=== PATIENT | female | born 1950 | race Caucasian/White ===

== ENCOUNTER 2016-09-02 23:54 | Emergency (ER) | payer OTHER ==
[~2016-09-02] VITALS: Ht 165.1 cm; Wt 104.2 kg
[~2016-09-02 23:54] MED LIST: ASPI-496 PO; CALC1CAP8 PO; CALC625T68 PO; CHOL5000 PO; FISH1CAP PO; LINA290C PO; LUTE1CAP PO; OMEP-110 PO; OXYC-223 PO; TRAM100T2 PO; VITA400T6 PO; lidocaine patch TD; statin PO
[2016-09-02 23:55] VITALS: BP 149/88
[2016-09-03] MEDS ORDERED: ASPIRIN 81 MG TABLET CHEW ONE ×2 (00:06→01:08)
[2016-09-03] MEDS ORDERED: SODIUM CHLORIDE FLUSH 10ML SYR IVF ONE (00:30)
[2016-09-03] MEDS ORDERED: ASPIRIN 81 MG TABLET CHEW PO ONE (00:30)
[2016-09-03 00:34] LABS: BLOOD UREA NITROGEN 18 mg/dL (7-18); IS PT STATUS REG ER OR PRE ER? YES
[2016-09-03] MEDS ORDERED: KETOROLAC 30 MG/1 ML ONE (01:08)
[2016-09-03] MEDS ORDERED: MAALOX/HYOSCYAMINE/LIDOCAINE 45 ML BOTTLE ONE (01:08)
== END 2016-09-03 10:09 | disposition home or self-care (01) ==
LOC: ED 09-03 02:35
DX: R07.89 Other chest pain (principal); I10 Essential (primary) hypertension; E78.5 Hyperlipidemia, unspecified
CPT/HCPCS: 36415; 71020; 80048; 82040; 84484; 85025; 93005; 99285

== ENCOUNTER → 2018-01-06 | Outpatient (CLI) | payer OTHER ==
[~2018-01-06] MED LIST changes: +ATOR20TA9 PO; -OXYC-223 PO; +OXYC-306 PO; -TRAM100T2 PO; +TRAM100T33 PO
== END | disposition home or self-care (01) ==
LOC: STAR 09:39
PROVIDERS: ATTEND Surgery
DX: Z02.9 Encounter for administrative examinations, unspecified (principal)

== ENCOUNTER → 2018-01-09 | Outpatient (CLI) | payer OTHER | END | disposition home or self-care (01) | LOC: CFH 07:25 | PROVIDERS: ATTEND Internal Medicine Cardiovascular Disease | DX: R07.9 Chest pain, unspecified (principal) | CPT/HCPCS: 78452; 93017; A9502 ==

== ENCOUNTER 2018-01-14 05:16 | Day surgery (SDC) | payer OTHER ==
[~2018-01-14] VITALS: Ht 165.1 cm; Wt 102.4 kg
[2018-01-14] MEDS ORDERED: SCOPOLAMINE PATCH, 1.5MG PATCH.TD72 TD ONE (06:30)
[2018-01-14] MEDS ORDERED: LACTATED RINGERS 1,000 ML IV SCH (06:44)
[2018-01-14 06:49] VITALS: BP 129/86
[2018-01-14] MEDS ORDERED: BUPIVACAINE/PF 0.5% ONE (06:59)
[2018-01-14] MEDS ORDERED: GABAPENTIN 300 MG CAPSULE PO ONE (07:30)
[2018-01-14] MEDS ORDERED: ACETAMINOPHEN 500 MG TABLET PO ONE (07:30)
[2018-01-14] MEDS ORDERED: BUPIVACAINE 0.25% ONE (07:34)
[2018-01-14] MEDS ORDERED: BUPIVACAINE/PF 0.25% INFIL ONE (07:48)
[2018-01-14] MEDS ORDERED: FENTANYL PF 100 MCG/2ML ONE ×2 (07:58→10:14)
[2018-01-14] MEDS ORDERED: OXYcodone 5 MG/5 ML ORAL.SOL UDC PO PRN (08:00)
[2018-01-14] MEDS ORDERED: hydrALAzine 20 MG/ML, 1ML IV PRN (08:00)
[2018-01-14] MEDS ORDERED: HYDROmorphone 1 MG/ML, 1ML IV PRN (08:00)
[2018-01-14] MEDS ORDERED: PROCHLORPERAZINE 5 MG/ML, 2ML IV PRN (08:00)
[2018-01-14] MEDS ORDERED: LABETALOL 5MG/ML, 20ML IV PRN (08:00)
[2018-01-14] MEDS ORDERED: DIPHENHYDRAMINE 50 MG/ML, 1ML IVPush PRN (08:00)
[2018-01-14] MEDS ORDERED: KETOROLAC 30 MG/1 ML ONE (08:15)
[2018-01-14] MEDS ORDERED: ONDANSETRON 2MG/ML, 2ML ONE (08:30)
[2018-01-14] MEDS ORDERED: GLYCOPYRROLATE 0.2MG/1ML, 5ML ONE (08:30)
[2018-01-14] MEDS ORDERED: ROCURONIUM 10MG/ML,5ML ONE (08:30)
[2018-01-14] MEDS ORDERED: SUCCINYLCHOLINE 20 MG/ML, 10ML ONE (08:30)
[2018-01-14] MEDS ORDERED: CEFAZOLIN 1,000 MG ONE (08:30)
[2018-01-14] MEDS ORDERED: DEXAMETHASONE 4 MG/ML, 1ML ONE (08:30)
[2018-01-14] MEDS ORDERED: PROPOFOL 10 MG/ML, 20ML ONE (08:30)
[2018-01-14] MEDS ORDERED: NEOSTIGMINE 1 MG/ML, 10ML ONE (08:30)
[2018-01-14] MEDS ORDERED: OXYcodone 5 MG/5 ML ORAL.SOL UDC ONE ×2 (10:14→10:44)
[2018-01-14] MEDS: FENTANYL PF 100 MCG/2ML IV PRN ×2 (10:15→10:30)
== END 2018-01-14 13:50 | disposition home or self-care (01) ==
LOC: OUT 05:16
PROVIDERS: ATTEND Surgery
DX: K40.90 Unilateral inguinal hernia, without obstruction or gangrene, not specified as recurrent (principal); I10 Essential (primary) hypertension; E78.00 Pure hypercholesterolemia, unspecified; E66.9 Obesity, unspecified; E11.9 Type 2 diabetes mellitus without complications; K21.9 Gastro-esophageal reflux disease without esophagitis; G47.33 Obstructive sleep apnea (adult) (pediatric); Z79.82 Long term (current) use of aspirin; Z98.890 Other specified postprocedural states; Z88.1 Allergy status to other antibiotic agents; Z88.8 Allergy status to other drugs, medicaments and biological substances; Z87.440 Personal history of urinary (tract) infections
CPT/HCPCS: 49505; C1781; J0330; J0690; J1100; J1885; J2405; J2704; J2710; J3010; J3490; J7120

== ENCOUNTER → 2018-07-15 | Outpatient (CLI) | payer OTHER ==
[~2018-07-15] MED LIST changes: +ATOR20TA37 PO; -ATOR20TA9 PO; +OMNIPAQUE 350 MG/ML, 100ML BOTTLE ONE
== END | disposition home or self-care (01) ==
LOC: CFH 08:52
PROVIDERS: ATTEND Surgery
DX: K46.9 Unspecified abdominal hernia without obstruction or gangrene (principal); N28.1 Cyst of kidney, acquired
CPT/HCPCS: 74177; Q9967

== ENCOUNTER 2018-10-27 11:53 | Outpatient (CLI) | payer OTHER | END 2018-10-27 23:59 | disposition home or self-care (01) | LOC: STAR 11:53 | PROVIDERS: ATTEND Surgery | DX: Z01.818 Encounter for other preprocedural examination (principal) | CPT/HCPCS: 93005 ==

== ENCOUNTER 2019-03-12 13:39 | Outpatient (CLI) | payer OTHER ==
[~2019-03-12 13:39] MED LIST changes: +CHOL500045 PO; +IBUP1TAB11 PO; +LUTE40CA PO; +METF500T17 PO; +OMEG-76 PO; -OMNIPAQUE 350 MG/ML, 100ML BOTTLE ONE; +VIT1CAPS42 PO; +VITA400C43 PO; +zeaxanthin PO
[2019-03-12] MEDS ORDERED: OMNIPAQUE 350 MG/ML, 100ML BOTTLE ONE (14:29)
== END 2019-03-12 23:59 | disposition home or self-care (01) ==
LOC: CFH 13:39
PROVIDERS: ATTEND Surgery
DX: K57.30 Diverticulosis of large intestine without perforation or abscess without bleeding (principal); K44.9 Diaphragmatic hernia without obstruction or gangrene; K76.0 Fatty (change of) liver, not elsewhere classified; N28.1 Cyst of kidney, acquired; I70.0 Atherosclerosis of aorta; K40.90 Unilateral inguinal hernia, without obstruction or gangrene, not specified as recurrent; M47.819 Spondylosis without myelopathy or radiculopathy, site unspecified; Z90.710 Acquired absence of both cervix and uterus; Z96.642 Presence of left artificial hip joint
CPT/HCPCS: 74177; Q9967

== ENCOUNTER → 2019-11-15 | Outpatient (CLI) | payer OTHER | END | disposition home or self-care (01) | LOC: RAD 13:00 | PROVIDERS: ATTEND Anesthesiology | DX: Z01.818 Encounter for other preprocedural examination (principal); Z01.89 Encounter for other specified special examinations | CPT/HCPCS: 71046; 93005 ==

== ENCOUNTER 2019-12-13 10:35 | Outpatient (CLI) | payer OTHER | END 2019-12-13 23:59 | disposition home or self-care (01) | LOC: CFH 10:35 | PROVIDERS: ATTEND Nurse Practitioner Family | DX: R91.8 Other nonspecific abnormal finding of lung field (principal); M51.36 Other intervertebral disc degeneration, lumbar region | CPT/HCPCS: 71250 ==

== ENCOUNTER → 2020-02-25 | Outpatient (CLI) | payer OTHER ==
[~2020-02-25] MED LIST changes: +LIFI1DRO EACHEYE; +SENN1TAB67 PO
[2020-02-25 15:06] LABS: ALBUMIN 4.2 g/dL (3.4-5.0); CALCIUM 9.3 mg/dL (8.5-10.1); CHLORIDE 108 mmol/L (98-107)
[2020-02-25 15:12] LABS: ALANINE AMINOTRANSFERASE 37 U/L (12-78); ALKALINE PHOSPHATASE 102 U/L (45-117); BILIRUBIN,TOTAL 0.6 mg/dL (0.2-1.0); CREATININE 0.93 mg/dL (0.55-1.02); TOTAL PROTEIN 8.1 g/dL (6.4-8.2)
[2020-02-25 15:16] LABS: ANION GAP 6 mmol/L (5-15)
== END | disposition home or self-care (01) ==
LOC: STAR 13:29
PROVIDERS: ATTEND Surgery
DX: Z01.812 Encounter for preprocedural laboratory examination (principal); Z20.828 Contact with and (suspected) exposure to other viral communicable diseases; K40.90 Unilateral inguinal hernia, without obstruction or gangrene, not specified as recurrent; R10.30 Lower abdominal pain, unspecified
CPT/HCPCS: 80053; 87635; 93005

== ENCOUNTER 2020-03-01 12:50 | Day surgery (SDC) | payer OTHER ==
[~2020-03-01] VITALS: Ht 165.1 cm; Wt 100.0 kg
[~2020-03-01 12:50] MED LIST changes: +CHLORHEXIDINE 15 ML UDC ONE
[2020-03-01] MEDS ORDERED: BUPIVACAINE/PF 0.25% ONE (13:24)
[2020-03-01] MEDS ORDERED: EPINEPHRINE 1 MG/ML, 1ML ONE (13:24)
[2020-03-01 13:48] VITALS: BP 136/83
[2020-03-01] MEDS ORDERED: CHLORHEXIDINE 15 ML UDC ONE (13:50)
[2020-03-01] MEDS ORDERED: LACTATED RINGERS 1,000 ML IV SCH ×2 (14:00→20:30)
[2020-03-01] MEDS ORDERED: CHLORHEXIDINE 15 ML UDC MM ONE (14:00)
[2020-03-01] MEDS ORDERED: SCOPOLAMINE 1MG PATCH TD ONE (14:48)
[2020-03-01] MEDS ORDERED: FENTANYL PF 100 MCG/2ML ONE (14:51)
[2020-03-01] MEDS ORDERED: SCOPOLAMINE 1MG PATCH TD SCH (15:00)
[2020-03-01] MEDS ORDERED: ROCURONIUM 10 MG/ML,10ML ONE (15:05)
[2020-03-01] MEDS ORDERED: ONDANSETRON 2MG/ML, 2ML ONE (15:05)
[2020-03-01] MEDS ORDERED: DEXAMETHASONE 4 MG/ML, 1ML ONE (15:05)
[2020-03-01] MEDS ORDERED: PROPOFOL 10 MG/ML, 20ML ONE (15:05)
[2020-03-01] MEDS ORDERED: CEFAZOLIN 1,000 MG ONE (15:05)
[2020-03-01] MEDS ORDERED: SUCCINYLCHOLINE 20 MG/ML, 10ML ONE (15:05)
[2020-03-01] MEDS ORDERED: OXYcodone 5 MG/5 ML ORAL.SOL UDC PO PRN (15:30)
[2020-03-01] MEDS ORDERED: HYDROcodone/APAP 7.5-325MG/15ML UDC PO PRN (15:30)
[2020-03-01] MEDS ORDERED: PROMETHAZINE 25 MG/ML, 1ML IVPush PRN (15:30)
[2020-03-01] MEDS ORDERED: METHOCARBAMOL 1,000 MG in DEXTROSE 5% 100 ML IV PRN (16:31)
[2020-03-01] MEDS ORDERED: PROMETHAZINE 25 MG/ML, 1ML ONE (17:02)
[2020-03-01] MEDS ORDERED: HYDROmorphone 2 MG/ML, 1ML ONE (17:08)
[2020-03-01] MEDS: HYDROmorphone 1 MG/ML, 1ML INJ IVPush PRN ×2 (17:15→17:25)
[2020-03-01] MEDS ORDERED: FENTANYL 75 MCG PATCH TD SCH (17:30)
[2020-03-01] MEDS ORDERED: ONDANSETRON 2MG/ML, 2ML IVPush PRN (20:30)
[2020-03-01] MEDS ORDERED: KETOROLAC 30 MG/1 ML IV PRN (20:30)
[2020-03-01] MEDS ORDERED: HYDROmorphone 2MG TABLET PO PRN (20:30)
[2020-03-01] MEDS ORDERED: HYDROmorphone 2 MG/ML, 1ML IV PRN (20:30)
[2020-03-01] MEDS ORDERED: DIPHENHYDRAMINE 50 MG/ML, 1ML IVPush PRN (20:30)
[2020-03-01] MEDS ORDERED: SENNA/DOCUSATE TABLET PO SCH (21:00)
[2020-03-01] MEDS ORDERED: ASPIRIN 81 MG TABLET EC PO SCH (21:00)
[2020-03-01] MEDS ORDERED: LIFITEGRAST HOMEOPHTH SCH (21:00)
[2020-03-01] MEDS ORDERED: DIPHENHYDRAMINE 25 MG CAPSULE PO PRN (21:00)
[2020-03-01] MEDS ORDERED: ATORVASTATIN 20 MG TABLET PO SCH (21:00)
[2020-03-01] MEDS ORDERED: FENT1PAT77 TP (21:03)
[2020-03-02] MEDS ORDERED: metFORMIN 500 MG TABLET PO SCH (09:00)
[2020-03-02] MEDS ORDERED: LINACLOTIDE 290 MCG HOMEMEDPO SCH (09:00)
[2020-03-04] MEDS ORDERED: FENTANYL REMOVE PATCH NOTE XX SCH (17:30)
== END 2020-03-01 22:00 | disposition home or self-care (01) ==
LOC: OUT 12:50 → 4NW 19:39 → OUT 22:00
PROVIDERS: ATTEND Surgery
DX: K40.90 Unilateral inguinal hernia, without obstruction or gangrene, not specified as recurrent (principal); R10.31 Right lower quadrant pain; K66.0 Peritoneal adhesions (postprocedural) (postinfection); E11.9 Type 2 diabetes mellitus without complications; E66.9 Obesity, unspecified; M19.90 Unspecified osteoarthritis, unspecified site; Z90.49 Acquired absence of other specified parts of digestive tract; Z88.1 Allergy status to other antibiotic agents; Z88.8 Allergy status to other drugs, medicaments and biological substances; Z79.82 Long term (current) use of aspirin; Z79.899 Other long term (current) drug therapy; Z98.890 Other specified postprocedural states; Z72.89 Other problems related to lifestyle; Z82.49 Family history of ischemic heart disease and other diseases of the circulatory system; Z83.3 Family history of diabetes mellitus; Z68.36 Body mass index [BMI] 36.0-36.9, adult
CPT/HCPCS: 49650; 64999; 82962; 88302; C1781; J0171; J0330; J0690; J1100; J1170; J1885; J2405; J2550; J2704; J2800; J3010; J7120; S2900; G0378

== ENCOUNTER → 2020-06-21 | Outpatient (CLI) | payer OTHER ==
[~2020-06-21] MED LIST changes: -CHLORHEXIDINE 15 ML UDC ONE; +FENT1PAT77 TP; -OXYC-306 PO; +OXYC1TAB17 PO
== END | disposition home or self-care (01) ==
LOC: CFH 09:54
PROVIDERS: ATTEND Anesthesiology
DX: M51.34 Other intervertebral disc degeneration, thoracic region (principal); M41.85 Other forms of scoliosis, thoracolumbar region; M48.04 Spinal stenosis, thoracic region
CPT/HCPCS: 72072